=== PATIENT | male | born 1970 | race Caucasian/White ===

== ENCOUNTER 2022-01-26 08:14 | Inpatient (IN) | payer OTHER, SELFPAY ==
[2022-01-26] MEDS ORDERED: Magnesium 2 GM/50 ML BAG (IN WATER) ONE (08:52)
[2022-01-26 09:17] LABS: #Eosinphils 0.1 thou/uL (0.0-0.7); #Monocytes 0.4 thou/uL (0.11-0.59); #Neutrophils 7.7 thou/uL (1.40-6.50); %Basophils 0.4 % (0.0-1.0); %Eosinophils 1.1 % (0.0-10.0); %Lymphocytes 10.4 % (21.0-51.0); %Monocytes 4.6 % (0.0-10.0); %Neutrophils 83.5 % (42.0-75.0); Hemoglobin 14.9 g/dL (14.0-18.0); Mean Corpuscular HGB CONC 33.9 g/dL (32.0-36.0); Mean Corpuscular Hemoglobin 31.5 pg (27.0-31.0); Mean Platelet Volume 8.1 fL (7.4-10.4); Platelet Count 140 10x3/uL (130-400); RBC Distribution Width 12.7 % (11.5-14.5); Red Blood Cell (RBC) Count 4.72 mill/uL (4.70-6.10); White Blood Cell (WBC) Count 9.2 10x3/uL (4.8-10.8)
[2022-01-26 09:38] LABS: ALT (SGPT) 37 U/L (8-55); AST (SGOT) 28 U/L (5-34); Albumin 4.1 g/dL (3.5-5.0); Alkaline Phosphatase 109 U/L (40-110); Anion Gap 15 mmol/L (10-20); BUN (Urea Nitrogen) 11 mg/dL (8.4-25.7); Bilirubin, Total 0.3 mg/dL (0.2-1.2); Calc. Creatinine Clearance 0 mL/min (70-130); Carbon Dioxide 22 mmol/L (22-29); Chloride 102 mmol/L (98-107); Estimated GFR 79; Potassium 4.4 mmol/L (3.5-5.1); Protein, Total 7.1 g/dL (6.0-8.3); Sodium 135 mmol/L (136-145)
[2022-01-26 09:41] LABS: Glucose 418 mg/dL (70-105)
[2022-01-26 10:00] LABS: CKMB 11.5 ng/mL (0-6.6)
[2022-01-26] MEDS ORDERED: Iopamidol-370 76% 500 ML 1 ML ONE (10:59)
[2022-01-26] MEDS ORDERED: Furosemide 40 MG/4 ML VIAL ONE (11:03)
[2022-01-26] MEDS ORDERED: Aspirin Chewable 81 MG TAB ONE (11:03)
[2022-01-26] MEDS ORDERED: Ipratropium Bromide 2.5 ml Neb ONE (11:09)
[2022-01-26] MEDS ORDERED: Albuterol Sulfate 2.5 mg/3 ml Neb ONE (11:09)
[2022-01-26 11:35] VITALS: BMI 34.2
[2022-01-26] MEDS ORDERED: Guaifenesin DM 100-10/5 ML UDCUP PO PRN (11:58)
[2022-01-26] MEDS ORDERED: Dextrose 5% in Water 1,000 ML IV PRN (12:06)
[2022-01-26] MEDS ORDERED: Dextrose 50% Abboject 50 ML SYRINGE SLOW IVP PRN (12:06)
[2022-01-26] MEDS ORDERED: Azithromycin 250 MG TAB PO SCH (12:30)
[2022-01-26 13:37] LABS: SARS-CoV-2 NAA Rapid Test Not Detected (NotDetected)
[2022-01-26 13:40] LABS: CKMB 55.1 ng/mL (0-6.6)
[2022-01-26] MEDS: Nicotine 14 MG PATCH TD SCH (14:47)
[2022-01-26] MEDS: methylPREDNISolone Sod Succ 40 MG VIAL IVP SCH ×2 (14:48→22:31)
[2022-01-26] MEDS: cefTRIAXone\\ROCEPHIN 1 GM in Sodium Chloride 0.9% 100 ML IVPB SCH (14:48)
[2022-01-26] MEDS ORDERED: Heparin 10,000 UNITS/ 10 ML VIAL SLOW IVP SCH (16:00)
[2022-01-26] MEDS ORDERED: Heparin 25,000 units/D5W 500 ML IVPB SCH (16:00)
[2022-01-26 16:36] LABS: Hemoglobin 15.4 g/dL (14.0-18.0); Platelet Count 162 10x3/uL (130-400)
[2022-01-26] MEDS ORDERED: Enoxaparin Sodium 100 MG/ML SYRINGE SC SCH ×2 (17:00→21:00)
[2022-01-26] MEDS: Carvedilol 3.125 MG TAB PO SCH (17:18)
[2022-01-26] MEDS: HumaLOG 300 UNITS/3 ML VIAL SC PRN ×2 (17:19→22:28)
[2022-01-26 19:41] LABS: CKMB 92.8 ng/mL (0-6.6)
[2022-01-26] MEDS ORDERED: Communication Order-Pharmacy FS SCH (19:45)
[2022-01-26] MEDS: Famotidine 20 MG TAB PO SCH (20:31)
[2022-01-26] MEDS: Atorvastatin Calcium 40 MG TAB PO SCH (20:31)
[2022-01-26] MEDS: Acetaminophen 325 MG TAB PO PRN (22:26)
[2022-01-26] MEDS: Insulin Glargine 30 UNITS/0.3 ML VIAL SC SCH (22:29)
[2022-01-27] MEDS ORDERED: Sodium Chloride 0.9% 500 ML IV SCH (00:01)
[2022-01-27] MEDS ORDERED: Fioricet 325/50/40 mg Tablet PO SCH (00:15)
[2022-01-27] MEDS: Carvedilol 3.125 MG TAB PO SCH ×2 (06:05→18:05)
[2022-01-27] MEDS: Lisinopril 5 MG TAB PO SCH (06:05)
[2022-01-27] MEDS: Azithromycin 250 MG TAB PO SCH (06:05)
[2022-01-27] MEDS: Famotidine 20 MG TAB PO SCH ×2 (06:06→21:22)
[2022-01-27] MEDS: methylPREDNISolone Sod Succ 40 MG VIAL IVP SCH ×3 (06:06→21:22)
[2022-01-27] MEDS ORDERED: Enoxaparin Sodium 40 MG/0.4 ML SYRINGE SC SCH (09:00)
[2022-01-27] MEDS ORDERED: Morphine 2 MG/ML VIAL SLOW IVP PRN (09:09)
[2022-01-27] MEDS: Acetaminophen 325 MG TAB PO PRN (09:32)
[2022-01-27] MEDS: Clopidogrel Bisulfate 75 MG TAB PO SCH (09:32)
[2022-01-27 10:11] LABS: #Lymphocytes 0.8 thou/uL (1.20-3.40); #Monocytes 0.6 thou/uL (0.11-0.59); #Neutrophils 11.6 thou/uL (1.40-6.50); %Basophils 0.1 % (0.0-1.0); %Eosinophils 0.1 % (0.0-10.0); %Lymphocytes 6.1 % (21.0-51.0); %Monocytes 4.7 % (0.0-10.0); %Neutrophils 89.1 % (42.0-75.0); Hemoglobin 14.4 g/dL (14.0-18.0); Mean Corpuscular HGB CONC 33.3 g/dL (32.0-36.0); Mean Corpuscular Hemoglobin 31.1 pg (27.0-31.0); Mean Corpuscular Volume 93.3 fl (78.0-98.0); Mean Platelet Volume 8.9 fL (7.4-10.4); Platelet Count 173 10x3/uL (130-400); Red Blood Cell (RBC) Count 4.63 mill/uL (4.70-6.10)
[2022-01-27] MEDS: Morphine 4 MG/ML VIAL SLOW IVP PRN ×2 (10:13→21:23)
[2022-01-27 10:24] LABS: Hemoglobin A1c 10.8 % (4.0-6.0)
[2022-01-27 10:36] LABS: Anion Gap 13 mmol/L (10-20); BUN (Urea Nitrogen) 17 mg/dL (8.4-25.7); Calc. Creatinine Clearance 116 mL/min (70-130); Calcium 9.2 mg/dL (7.8-10.44); Carbon Dioxide 25 mmol/L (22-29); Chloride 100 mmol/L (98-107); Estimated GFR 96; Glucose 306 mg/dL (70-105); Potassium 4.5 mmol/L (3.5-5.1); Sodium 133 mmol/L (136-145)
[2022-01-27] MEDS ORDERED: Iopamidol 370 76% 100 ML VIAL ONE (10:40)
[2022-01-27] MEDS ORDERED: Lidocaine 1% (PF) 30 ML VIAL ONE (11:02)
[2022-01-27] MEDS ORDERED: Heparin 10,000 UNITS/ 10 ML VIAL ONE (11:02)
[2022-01-27] MEDS ORDERED: FENTANYL 50 MCG/ML 1 ML VIAL ONE (12:01)
[2022-01-27] MEDS ORDERED: Midazolam HCl 2 mg/2 ml Vial ONE (12:01)
[2022-01-27] MEDS ORDERED: Sodium Chloride 0.9% 200 ML IV PRN (12:40)
[2022-01-27] MEDS ORDERED: Nitroglycerin 0.4 MG TAB (25 Tab Bottle) SL PRN (12:40)
[2022-01-27] MEDS ORDERED: Sodium Chloride 0.9% 250 ML IV SCH (12:45)
[2022-01-27] MEDS: Furosemide 20 MG/2 ML VIAL SLOW IVP SCH (15:13)
[2022-01-27] MEDS: cefTRIAXone\\ROCEPHIN 1 GM in Sodium Chloride 0.9% 100 ML IVPB SCH (15:14)
[2022-01-27] MEDS: Nicotine 14 MG PATCH TD SCH (16:12)
[2022-01-27] MEDS: HumaLOG 300 UNITS/3 ML VIAL SC PRN ×2 (18:05→21:25)
[2022-01-27] MEDS: Acetaminophen/Codeine 30-300mg Tablet PO PRN (18:09)
[2022-01-27] MEDS: Atorvastatin Calcium 40 MG TAB PO SCH (21:22)
[2022-01-27] MEDS: Insulin Glargine 30 UNITS/0.3 ML VIAL SC SCH (21:26)
[2022-01-28] MEDS: Acetaminophen/Codeine 30-300mg Tablet PO PRN ×4 (03:33→23:10)
[2022-01-28] MEDS: Morphine 4 MG/ML VIAL SLOW IVP PRN ×3 (06:32→20:10)
[2022-01-28] MEDS: HumaLOG 300 UNITS/3 ML VIAL SC PRN ×4 (06:34→20:50)
[2022-01-28] MEDS: methylPREDNISolone Sod Succ 40 MG VIAL IVP SCH ×2 (06:35→13:41)
[2022-01-28] MEDS: Famotidine 20 MG TAB PO SCH ×2 (08:29→20:49)
[2022-01-28] MEDS: Azithromycin 250 MG TAB PO SCH (08:29)
[2022-01-28] MEDS: Carvedilol 3.125 MG TAB PO SCH ×2 (08:29→16:47)
[2022-01-28] MEDS: Lisinopril 5 MG TAB PO SCH (08:29)
[2022-01-28] MEDS: Furosemide 20 MG/2 ML VIAL SLOW IVP SCH (08:29)
[2022-01-28] MEDS: Clopidogrel Bisulfate 75 MG TAB PO SCH (08:29)
[2022-01-28] MEDS: cefTRIAXone\\ROCEPHIN 1 GM in Sodium Chloride 0.9% 100 ML IVPB SCH (13:42)
[2022-01-28] MEDS: Nicotine 14 MG PATCH TD SCH (13:43)
[2022-01-28] MEDS ORDERED: Aspirin 81 mg Enteric Coated Tablet PO SCH (14:45)
[2022-01-28 17:20] LABS: Hemoglobin 15.5 g/dL (14.0-18.0); Platelet Count 199 10x3/uL (130-400)
[2022-01-28] MEDS: Atorvastatin Calcium 40 MG TAB PO SCH (20:49)
[2022-01-28] MEDS ORDERED: Insulin Glargine 30 UNITS/0.3 ML VIAL SC SCH (21:00)
[2022-01-29] MEDS: Morphine 4 MG/ML VIAL SLOW IVP PRN ×3 (01:17→20:32)
[2022-01-29] MEDS: Acetaminophen/Codeine 30-300mg Tablet PO PRN ×3 (04:00→22:27)
[2022-01-29 05:08] LABS: #Lymphocytes 2.9 thou/uL (1.20-3.40); #Monocytes 1.2 thou/uL (0.11-0.59); #Neutrophils 8.5 thou/uL (1.40-6.50); %Basophils 0.1 % (0.0-1.0); %Eosinophils 0.4 % (0.0-10.0); %Lymphocytes 22.8 % (21.0-51.0); %Monocytes 9.4 % (0.0-10.0); %Neutrophils 67.3 % (42.0-75.0); Hemoglobin 15.7 g/dL (14.0-18.0); Mean Corpuscular HGB CONC 33.9 g/dL (32.0-36.0); Mean Corpuscular Hemoglobin 31.7 pg (27.0-31.0); Mean Corpuscular Volume 93.6 fl (78.0-98.0); Mean Platelet Volume 8.8 fL (7.4-10.4); Platelet Count 191 10x3/uL (130-400); RBC Distribution Width 12.9 % (11.5-14.5); Red Blood Cell (RBC) Count 4.94 mill/uL (4.70-6.10); White Blood Cell (WBC) Count 12.6 10x3/uL (4.8-10.8)
[2022-01-29 05:19] LABS: Anion Gap 15 mmol/L (10-20); BUN (Urea Nitrogen) 25 mg/dL (8.4-25.7); Calc. Creatinine Clearance 98 mL/min (70-130); Calcium 9.4 mg/dL (7.8-10.44); Carbon Dioxide 24 mmol/L (22-29); Chloride 97 mmol/L (98-107); Estimated GFR 81; Glucose 277 mg/dL (70-105); Potassium 4.2 mmol/L (3.5-5.1); Sodium 132 mmol/L (136-145)
[2022-01-29] MEDS: HumaLOG 300 UNITS/3 ML VIAL SC PRN ×3 (05:55→20:33)
[2022-01-29] MEDS ORDERED: predniSONE 20 MG TAB PO SCH (08:00)
[2022-01-29] MEDS ORDERED: Aspirin 325 mg Enteric Coated Tablet PO SCH (09:00)
[2022-01-29] MEDS: Nicotine 14 MG PATCH TD SCH (10:03)
[2022-01-29] MEDS: Clopidogrel Bisulfate 75 MG TAB PO SCH (10:03)
[2022-01-29] MEDS: Furosemide 20 MG/2 ML VIAL SLOW IVP SCH (10:03)
[2022-01-29] MEDS: Famotidine 20 MG TAB PO SCH ×2 (10:03→20:34)
[2022-01-29] MEDS: Carvedilol 3.125 MG TAB PO SCH ×2 (10:03→16:55)
[2022-01-29] MEDS: Lisinopril 5 MG TAB PO SCH (10:03)
[2022-01-29] MEDS: Azithromycin 250 MG TAB PO SCH (10:04)
[2022-01-29] MEDS ORDERED: Nicotine 14 MG PATCH TD PRN (11:34)
[2022-01-29] MEDS ORDERED: Insulin Glargine 30 UNITS/0.3 ML VIAL SC SCH ×2 (11:45→21:00)
[2022-01-29] MEDS: Gabapentin 300 MG CAP PO SCH ×2 (16:55→20:33)
[2022-01-29] MEDS: Atorvastatin Calcium 40 MG TAB PO SCH (20:34)
[2022-01-29] MEDS: Cefdinir 300 MG CAP PO SCH (20:34)
[2022-01-30] MEDS: Morphine 4 MG/ML VIAL SLOW IVP PRN ×5 (00:51→23:43)
[2022-01-30] MEDS: Acetaminophen/Codeine 30-300mg Tablet PO PRN ×2 (03:02→22:05)
[2022-01-30 04:43] LABS: #Lymphocytes 2.7 thou/uL (1.20-3.40); #Monocytes 0.9 thou/uL (0.11-0.59); #Neutrophils 6.3 thou/uL (1.40-6.50); %Basophils 0.3 % (0.0-1.0); %Eosinophils 0.5 % (0.0-10.0); %Lymphocytes 26.9 % (21.0-51.0); %Monocytes 8.6 % (0.0-10.0); %Neutrophils 63.8 % (42.0-75.0); Hemoglobin 15.4 g/dL (14.0-18.0); Mean Corpuscular HGB CONC 34.5 g/dL (32.0-36.0); Mean Corpuscular Hemoglobin 31.6 pg (27.0-31.0); Mean Corpuscular Volume 91.8 fl (78.0-98.0); Mean Platelet Volume 8.5 fL (7.4-10.4); Platelet Count 176 10x3/uL (130-400); RBC Distribution Width 12.7 % (11.5-14.5); Red Blood Cell (RBC) Count 4.86 mill/uL (4.70-6.10); White Blood Cell (WBC) Count 9.9 10x3/uL (4.8-10.8)
[2022-01-30 04:54] LABS: Anion Gap 13 mmol/L (10-20); BUN (Urea Nitrogen) 31 mg/dL (8.4-25.7); Calc. Creatinine Clearance 96 mL/min (70-130); Calcium 9.6 mg/dL (7.8-10.44); Carbon Dioxide 26 mmol/L (22-29); Chloride 96 mmol/L (98-107); Estimated GFR 78; Glucose 320 mg/dL (70-105); Potassium 4.2 mmol/L (3.5-5.1); Sodium 131 mmol/L (136-145)
[2022-01-30] MEDS: HumaLOG 300 UNITS/3 ML VIAL SC PRN ×3 (06:09→22:04)
[2022-01-30] MEDS ORDERED: predniSONE 20 MG TAB PO SCH (08:00)
[2022-01-30] MEDS: Gabapentin 300 MG CAP PO SCH ×3 (09:59→22:05)
[2022-01-30] MEDS: Clopidogrel Bisulfate 75 MG TAB PO SCH (09:59)
[2022-01-30] MEDS: Cefdinir 300 MG CAP PO SCH ×2 (09:59→22:05)
[2022-01-30] MEDS: Carvedilol 3.125 MG TAB PO SCH ×2 (10:00→17:23)
[2022-01-30] MEDS: Furosemide 20 MG TAB PO SCH (10:00)
[2022-01-30] MEDS: Aspirin 81 mg Enteric Coated Tablet PO SCH (10:00)
[2022-01-30] MEDS: Empagliflozin 10 MG TAB PO SCH (10:01)
[2022-01-30] MEDS: Insulin Glargine 30 UNITS/0.3 ML VIAL SC SCH ×2 (10:01→22:05)
[2022-01-30] MEDS: Famotidine 20 MG TAB PO SCH ×2 (10:01→22:05)
[2022-01-30] MEDS: Azithromycin 250 MG TAB PO SCH (10:01)
[2022-01-30] MEDS: Acetaminophen 325 MG TAB PO PRN (10:02)
[2022-01-30 15:34] LABS: Hemoglobin 16.7 g/dL (14.0-18.0); Platelet Count 218 10x3/uL (130-400)
[2022-01-30] MEDS: Atorvastatin Calcium 40 MG TAB PO SCH (22:05)
[2022-01-31] MEDS: Morphine 4 MG/ML VIAL SLOW IVP PRN ×3 (04:32→17:50)
[2022-01-31 05:04] LABS: #Eosinphils 0.1 thou/uL (0.0-0.7); #Lymphocytes 3.3 thou/uL (1.20-3.40); #Monocytes 0.9 thou/uL (0.11-0.59); #Neutrophils 5.4 thou/uL (1.40-6.50); %Basophils 0.4 % (0.0-1.0); %Eosinophils 1.2 % (0.0-10.0); %Lymphocytes 33.9 % (21.0-51.0); %Monocytes 9.4 % (0.0-10.0); %Neutrophils 55.1 % (42.0-75.0); Hemoglobin 16.3 g/dL (14.0-18.0); Mean Corpuscular HGB CONC 33.7 g/dL (32.0-36.0); Mean Corpuscular Hemoglobin 31.1 pg (27.0-31.0); Mean Corpuscular Volume 92.3 fl (78.0-98.0); Mean Platelet Volume 8.4 fL (7.4-10.4); Platelet Count 191 10x3/uL (130-400); RBC Distribution Width 12.6 % (11.5-14.5); Red Blood Cell (RBC) Count 5.25 mill/uL (4.70-6.10); White Blood Cell (WBC) Count 9.8 10x3/uL (4.8-10.8)
[2022-01-31 05:30] LABS: Anion Gap 14 mmol/L (10-20); BUN (Urea Nitrogen) 27 mg/dL (8.4-25.7); Calc. Creatinine Clearance 88 mL/min (70-130); Calcium 9.8 mg/dL (7.8-10.44); Carbon Dioxide 29 mmol/L (22-29); Chloride 97 mmol/L (98-107); Estimated GFR 72; Glucose 168 mg/dL (70-105); Sodium 136 mmol/L (136-145)
[2022-01-31] MEDS: Acetaminophen/Codeine 30-300mg Tablet PO PRN ×3 (07:19→21:39)
[2022-01-31] MEDS: Furosemide 20 MG TAB PO SCH (09:57)
[2022-01-31] MEDS: predniSONE 20 MG TAB PO SCH (09:57)
[2022-01-31] MEDS: Famotidine 20 MG TAB PO SCH ×2 (09:57→21:38)
[2022-01-31] MEDS: Gabapentin 300 MG CAP PO SCH ×3 (09:57→21:38)
[2022-01-31] MEDS: Carvedilol 3.125 MG TAB PO SCH ×2 (09:59→16:14)
[2022-01-31] MEDS: Aspirin 81 mg Enteric Coated Tablet PO SCH (09:59)
[2022-01-31] MEDS: Empagliflozin 10 MG TAB PO SCH (09:59)
[2022-01-31] MEDS: Cefdinir 300 MG CAP PO SCH ×2 (09:59→21:38)
[2022-01-31] MEDS: Clopidogrel Bisulfate 75 MG TAB PO SCH (09:59)
[2022-01-31] MEDS: Insulin Glargine 30 UNITS/0.3 ML VIAL SC SCH ×2 (10:00→21:43)
[2022-01-31] MEDS: HumaLOG 300 UNITS/3 ML VIAL SC PRN ×3 (11:53→21:43)
[2022-01-31] MEDS: Atorvastatin Calcium 40 MG TAB PO SCH (21:38)
[2022-02-01] MEDS: Morphine 4 MG/ML VIAL SLOW IVP PRN ×5 (00:09→18:51)
[2022-02-01] MEDS: HumaLOG 300 UNITS/3 ML VIAL SC PRN ×4 (05:47→20:22)
[2022-02-01] MEDS: Empagliflozin 10 MG TAB PO SCH (09:18)
[2022-02-01] MEDS: Gabapentin 300 MG CAP PO SCH ×3 (09:18→20:21)
[2022-02-01] MEDS: Aspirin 81 mg Enteric Coated Tablet PO SCH (09:18)
[2022-02-01] MEDS: Furosemide 20 MG TAB PO SCH (09:18)
[2022-02-01] MEDS: Carvedilol 3.125 MG TAB PO SCH ×2 (09:19→17:53)
[2022-02-01] MEDS: Famotidine 20 MG TAB PO SCH ×2 (09:19→20:21)
[2022-02-01] MEDS: Cefdinir 300 MG CAP PO SCH (09:19)
[2022-02-01] MEDS: Clopidogrel Bisulfate 75 MG TAB PO SCH (09:19)
[2022-02-01] MEDS: Insulin Glargine 30 UNITS/0.3 ML VIAL SC SCH (09:24)
[2022-02-01] MEDS: predniSONE 20 MG TAB PO SCH (09:35)
[2022-02-01] MEDS: Atorvastatin Calcium 40 MG TAB PO SCH (20:21)
[2022-02-01] MEDS ORDERED: Insulin Glargine 30 UNITS/0.3 ML VIAL SC SCH (21:00)
[2022-02-02 05:24] LABS: Anion Gap 15 mmol/L (10-20); BUN (Urea Nitrogen) 30 mg/dL (8.4-25.7); Calc. Creatinine Clearance 73 mL/min (70-130); Calcium 9.6 mg/dL (7.8-10.44); Carbon Dioxide 26 mmol/L (22-29); Chloride 94 mmol/L (98-107); Estimated GFR 56; Glucose 250 mg/dL (70-105); Magnesium 2.6 mg/dL (1.6-2.6); Potassium 4.7 mmol/L (3.5-5.1); Sodium 130 mmol/L (136-145)
[2022-02-02] MEDS: HumaLOG 300 UNITS/3 ML VIAL SC PRN ×3 (05:31→21:38)
[2022-02-02] MEDS: Clopidogrel Bisulfate 75 MG TAB PO SCH (08:41)
[2022-02-02] MEDS: Gabapentin 300 MG CAP PO SCH (08:41)
[2022-02-02] MEDS: Empagliflozin 10 MG TAB PO SCH (08:41)
[2022-02-02] MEDS: Aspirin 81 mg Enteric Coated Tablet PO SCH (08:41)
[2022-02-02] MEDS: Insulin Glargine 30 UNITS/0.3 ML VIAL SC SCH ×2 (08:41→21:37)
[2022-02-02] MEDS: Famotidine 20 MG TAB PO SCH ×2 (08:41→21:37)
[2022-02-02] MEDS: Carvedilol 3.125 MG TAB PO SCH ×2 (08:41→17:10)
[2022-02-02] MEDS: Furosemide 20 MG TAB PO SCH (08:41)
[2022-02-02] MEDS ORDERED: HYDROcodone/Acetaminophen 5/325 mg Tablet PO SCH (09:45)
[2022-02-02] MEDS: Gabapentin 400 MG CAP PO SCH ×2 (15:44→21:35)
[2022-02-02] MEDS: HYDROcodone/Acetaminophen 5/325 mg Tablet PO PRN ×2 (17:10→22:56)
[2022-02-02] MEDS: Atorvastatin Calcium 40 MG TAB PO SCH (21:36)
[2022-02-03] MEDS: HYDROcodone/Acetaminophen 5/325 mg Tablet PO PRN ×3 (05:19→17:44)
[2022-02-03 05:24] LABS: Anion Gap 16 mmol/L (10-20); BUN (Urea Nitrogen) 24 mg/dL (8.4-25.7); Calc. Creatinine Clearance 77 mL/min (70-130); Calcium 8.9 mg/dL (7.8-10.44); Carbon Dioxide 23 mmol/L (22-29); Chloride 95 mmol/L (98-107); Estimated GFR 59; Glucose 361 mg/dL (70-105); Potassium 5.1 mmol/L (3.5-5.1); Sodium 129 mmol/L (136-145)
[2022-02-03] MEDS: HumaLOG 300 UNITS/3 ML VIAL SC PRN ×3 (05:40→21:08)
[2022-02-03] MEDS ORDERED: Insulin Glargine 30 UNITS/0.3 ML VIAL SC SCH (09:00)
[2022-02-03] MEDS: Famotidine 20 MG TAB PO SCH ×2 (10:08→21:00)
[2022-02-03] MEDS: Clopidogrel Bisulfate 75 MG TAB PO SCH (10:08)
[2022-02-03] MEDS: Furosemide 20 MG TAB PO SCH (10:08)
[2022-02-03] MEDS: Aspirin 81 mg Enteric Coated Tablet PO SCH (10:08)
[2022-02-03] MEDS: Gabapentin 400 MG CAP PO SCH ×3 (10:09→20:59)
[2022-02-03] MEDS: Empagliflozin 10 MG TAB PO SCH (10:10)
[2022-02-03] MEDS: Carvedilol 3.125 MG TAB PO SCH ×2 (10:10→17:35)
[2022-02-03] MEDS: Insulin Glargine 30 UNITS/0.3 ML VIAL SC SCH ×2 (10:10→21:00)
[2022-02-03] MEDS: Atorvastatin Calcium 40 MG TAB PO SCH (21:00)
[2022-02-04] MEDS: HYDROcodone/Acetaminophen 5/325 mg Tablet PO PRN ×3 (01:20→21:09)
[2022-02-04] MEDS: HumaLOG 300 UNITS/3 ML VIAL SC PRN ×3 (06:10→17:46)
[2022-02-04] MEDS: Gabapentin 400 MG CAP PO SCH ×3 (08:06→21:08)
[2022-02-04] MEDS: Empagliflozin 10 MG TAB PO SCH (08:06)
[2022-02-04] MEDS: Famotidine 20 MG TAB PO SCH ×2 (08:07→21:08)
[2022-02-04] MEDS: Aspirin 81 mg Enteric Coated Tablet PO SCH (08:07)
[2022-02-04] MEDS: Carvedilol 3.125 MG TAB PO SCH ×2 (08:07→17:45)
[2022-02-04] MEDS: Furosemide 20 MG TAB PO SCH (08:07)
[2022-02-04] MEDS: Clopidogrel Bisulfate 75 MG TAB PO SCH (08:07)
[2022-02-04] MEDS: Insulin Glargine 30 UNITS/0.3 ML VIAL SC SCH ×2 (08:08→21:09)
[2022-02-04] MEDS: Atorvastatin Calcium 40 MG TAB PO SCH (21:08)
[2022-02-05 04:55] LABS: #Eosinphils 0.2 thou/uL (0.0-0.7); #Lymphocytes 2.1 thou/uL (1.20-3.40); #Neutrophils 3.5 thou/uL (1.40-6.50); %Basophils 0.2 % (0.0-1.0); %Eosinophils 3.3 % (0.0-10.0); %Lymphocytes 30.5 % (21.0-51.0); %Monocytes 14.2 % (0.0-10.0); %Neutrophils 51.7 % (42.0-75.0); Hemoglobin 15.4 g/dL (14.0-18.0); Mean Corpuscular HGB CONC 33.2 g/dL (32.0-36.0); Mean Corpuscular Hemoglobin 30.9 pg (27.0-31.0); Mean Corpuscular Volume 93.2 fl (78.0-98.0); Mean Platelet Volume 8.7 fL (7.4-10.4); Platelet Count 134 10x3/uL (130-400); RBC Distribution Width 12.4 % (11.5-14.5); Red Blood Cell (RBC) Count 4.97 mill/uL (4.70-6.10); White Blood Cell (WBC) Count 6.8 10x3/uL (4.8-10.8)
[2022-02-05 05:05] LABS: Anion Gap 14 mmol/L (10-20); BUN (Urea Nitrogen) 24 mg/dL (8.4-25.7); Calc. Creatinine Clearance 70 mL/min (70-130); Calcium 9.2 mg/dL (7.8-10.44); Carbon Dioxide 25 mmol/L (22-29); Chloride 98 mmol/L (98-107); Estimated GFR 52; Glucose 232 mg/dL (70-105); Magnesium 2.6 mg/dL (1.6-2.6); Potassium 4.7 mmol/L (3.5-5.1); Sodium 132 mmol/L (136-145)
[2022-02-05] MEDS: HYDROcodone/Acetaminophen 5/325 mg Tablet PO PRN ×2 (05:59→13:32)
[2022-02-05] MEDS: HumaLOG 300 UNITS/3 ML VIAL SC PRN ×3 (06:01→18:01)
[2022-02-05] MEDS ORDERED: Insulin Glargine 30 UNITS/0.3 ML VIAL SC SCH (09:00)
[2022-02-05] MEDS: Aspirin 81 mg Enteric Coated Tablet PO SCH (09:02)
[2022-02-05] MEDS: Gabapentin 400 MG CAP PO SCH ×2 (09:03→16:25)
[2022-02-05] MEDS: Famotidine 20 MG TAB PO SCH (09:03)
[2022-02-05] MEDS: Empagliflozin 10 MG TAB PO SCH (09:04)
[2022-02-05] MEDS: Clopidogrel Bisulfate 75 MG TAB PO SCH (09:04)
[2022-02-05] MEDS: Furosemide 20 MG TAB PO SCH (09:04)
[2022-02-05] MEDS: Carvedilol 3.125 MG TAB PO SCH ×2 (09:04→16:25)
[2022-02-05] MEDS ORDERED: Albumin 25% 25 GM/100 ML BOT IVPB SCH (15:45)
[2022-02-05 15:54] VITALS: BP 114/60; TEMP 98.7
[2022-02-05] MEDS ORDERED: Furosemide 20 MG/2 ML VIAL SLOW IVP SCH (16:30)
== END 2022-02-05 19:38 | disposition home or self-care (01) | DRG 280 ==
LOC: ERS 08:14 → ERHOLD 11:02 → 2NO 13:16
PROVIDERS: ADMIT Internal Medicine; ATTEND Internal Medicine
PROC: 4A023N7 Measurement of Cardiac Sampling and Pressure, Left Heart, Percutaneous Approach (ICD-10-PCS; principal; 2022-01-27)
PROC: B2111ZZ Fluoroscopy of Multiple Coronary Arteries using Low Osmolar Contrast (ICD-10-PCS; 2022-01-27)
PROC: B2151ZZ Fluoroscopy of Left Heart using Low Osmolar Contrast (ICD-10-PCS; 2022-01-27)
DX: I13.0 Hypertensive heart and chronic kidney disease with heart failure and stage 1 through stage 4 chronic kidney disease, or unspecified chronic kidney disease (principal); I21.4 Non-ST elevation (NSTEMI) myocardial infarction; I50.23 Acute on chronic systolic (congestive) heart failure; J96.01 Acute respiratory failure with hypoxia; J44.1 Chronic obstructive pulmonary disease with (acute) exacerbation; E87.1 Hypo-osmolality and hyponatremia; I69.954 Hemiplegia and hemiparesis following unspecified cerebrovascular disease affecting left non-dominant side; Z20.822 Contact with and (suspected) exposure to COVID-19; E78.5 Hyperlipidemia, unspecified; I25.10 Atherosclerotic heart disease of native coronary artery without angina pectoris; F17.210 Nicotine dependence, cigarettes, uncomplicated; I25.5 Ischemic cardiomyopathy; I42.0 Dilated cardiomyopathy; L40.9 Psoriasis, unspecified; E66.9 Obesity, unspecified; N18.2 Chronic kidney disease, stage 2 (mild); E11.22 Type 2 diabetes mellitus with diabetic chronic kidney disease; I08.3 Combined rheumatic disorders of mitral, aortic and tricuspid valves; I25.2 Old myocardial infarction; Z95.5 Presence of coronary angioplasty implant and graft; Z79.899 Other long term (current) drug therapy; Z79.84 Long term (current) use of oral hypoglycemic drugs; Z79.4 Long term (current) use of insulin; Z68.32 Body mass index [BMI] 32.0-32.9, adult; Z88.8 Allergy status to other drugs, medicaments and biological substances
CPT/HCPCS: 36415; 36416; 71045; 71275; 80048; 80053; 82553; 83036; 83735; 83880; 84145; 84484; 85014; 85018; 85025; 85049; 85730; 87633; 87811; 93005; 93306; 93458; 93798; 94640; 94644; 94660; 94760; 96365; 96375; 99152; C1769; C1894; J0696; J1644; J1650; J1815; J1940; J2001; J2250; J2270; J2920; J3010; J3475; J3490; J7030; J7512; J7611; J7620; P9047; Q9967; U0002